=== PATIENT | male | born 1960 | race African-American/Black ===

== ENCOUNTER 2023-02-22 05:16 | Emergency (ER) | payer BC, SELFPAY ==
[2023-02-22] MEDS ORDERED: Ipratropium/Albuterol 3 ML NEB ONE ×2 (05:38→07:57)
[2023-02-22 06:02] LABS: ALT (SGPT) 46 U/L (8-55); AST (SGOT) 44 U/L (5-34); Albumin 3.9 g/dL (3.5-5.0); Alkaline Phosphatase 81 U/L (40-110); Anion Gap 14 mmol/L (10-20); BUN (Urea Nitrogen) 13 mg/dL (8.4-25.7); Calc. Creatinine Clearance 0 mL/min (70-130); Calcium 8.8 mg/dL (7.8-10.44); Carbon Dioxide 24 mmol/L (22-29); Chloride 104 mmol/L (98-107); Estimated GFR 72; Globulin 3.3 g/dL (2.4-3.5); Glucose 124 mg/dL (70-105); Potassium 4.4 mmol/L (3.5-5.1); Protein, Total 7.2 g/dL (6.0-8.3); Sodium 138 mmol/L (136-145)
[2023-02-22] MEDS ORDERED: methylPREDNISolone Sod Succ/PF 125 MG/2 ML VIAL ONE (06:12)
[2023-02-22 06:22] LABS: #Eosinphils 0.1 thou/uL (0.0-0.7); #Lymphocytes 1.3 thou/uL (1.20-3.40); #Monocytes 0.5 thou/uL (0.11-0.59); %Basophils 1.2 % (0.0-1.0); %Eosinophils 3.2 % (0.0-10.0); %Lymphocytes 33.9 % (21.0-51.0); %Monocytes 11.9 % (0.0-10.0); %Neutrophils 49.8 % (42.0-75.0); Hematocrit 50.1 % (42.0-52.0); Hemoglobin 15.5 g/dL (14.0-18.0); Mean Corpuscular HGB CONC 30.9 g/dL (32.0-36.0); Mean Corpuscular Hemoglobin 27.9 pg (27.0-31.0); Mean Corpuscular Volume 90.4 fl (78.0-98.0); Mean Platelet Volume 9.2 fL (7.4-10.4); Platelet Count 159 10x3/uL (130-400); RBC Distribution Width 14.6 % (11.5-14.5); Red Blood Cell (RBC) Count 5.54 mill/uL (4.70-6.10); White Blood Cell (WBC) Count 3.9 10x3/uL (4.8-10.8)
[2023-02-22] MEDS ORDERED: hydrALAZINE 20 MG/ML VIAL ONE (06:25)
[2023-02-22 06:31] LABS: Troponin I 0.038 ng/mL (< 0.028)
[2023-02-22 07:58] LABS: Troponin I 0.042 ng/mL (< 0.028)
[2023-02-22] MEDS ORDERED: Nitroglycerin 2% Ointment 1 INCH/1 GM Packet ONE (08:18)
[2023-02-22] MEDS ORDERED: Aspirin Chewable 81 MG TAB ONE (08:18)
[2023-02-22] MEDS ORDERED: Furosemide 40 MG/4 ML VIAL ONE (08:18)
[2023-02-22] MEDS ORDERED: Iopamidol 370 76% 100 ML VIAL ONE (08:33)
[2023-02-22] MEDS ORDERED: Nitroglycerin 2% Ointment 1 INCH/1 GM Packet TOP SCH (15:00)
== END 2023-02-22 09:47 | disposition short-term general hospital (02) ==
LOC: MADERS 05:16
DX: I50.9 Heart failure, unspecified (principal); D35.01 Benign neoplasm of right adrenal gland; R06.02 Shortness of breath; R79.89 Other specified abnormal findings of blood chemistry; R59.9 Enlarged lymph nodes, unspecified; Z87.891 Personal history of nicotine dependence
CPT/HCPCS: 71046; 71275; 80053; 83605; 83880; 84484; 85025; 85379; 93005; 94640; 96374; 96375; J0360; J1940; J2930; J7620; Q9967

== ENCOUNTER 2023-10-25 15:38 | Outpatient (CLI) | payer OTHER | END 2023-10-25 15:39 | disposition home or self-care (01) | LOC: MADRAD 15:38 | PROVIDERS: ATTEND Nurse Practitioner Family | DX: R06.02 Shortness of breath (principal) | CPT/HCPCS: 71046 ==